=== PATIENT | female | born 1960 | race Caucasian/White ===

== ENCOUNTER 2016-08-18 18:55 | Emergency (ER) | payer BC ==
--- NOTE | 2016-08-29 07:12 | ER ---
ADMIT: 08/18/2016 RM/LOC: ER [facility] MR#: [id number] [address] [id number] LUCI DUNCAN [address] [place] [id number] Emergency Room Report SEX: F AGE: 56 : 1960 DATE: 08/18/2016 ADDENDUM: CHIEF COMPLAINT: Right flank pain. HISTORY OF PRESENT ILLNESS: This is a 56-year-old female who had right flank pain that started about an hour ago. She said it was sudden onset. It feels worse than labor cramps. CT was done. At this time, there is no stone visualized, but her pain is improved. I told her she could have passed a stone. Does seem to appear that she has a minor urinary tract infection. Her urine showed 2+ leukocytes, 17 white blood cells, 8 red blood cells. BMP is normal except for potassium at 3.5. Her creatinine is 1.3. Her GFR is 46. CBC is normal. CLINICAL IMPRESSION: Urinary tract infection. CHINTAN Anne / Cruz Lord MD / brooke JOB #: [id number] CC: Cruz Lord MD, Attending Physician Yifan Ellis MD, Family Physician
== END 2016-08-18 21:25 | disposition home or self-care (01) ==
LOC: ER 18:55
DX: N39.0 Urinary tract infection, site not specified (principal); Z79.899 Other long term (current) drug therapy

== ENCOUNTER → 2016-11-03 | Outpatient (CLI) | payer BC | END | disposition home or self-care (01) | LOC: RAD.S 07:58 | DX: Z12.31 Encounter for screening mammogram for malignant neoplasm of breast (principal); R92.1 Mammographic calcification found on diagnostic imaging of breast; Z80.3 Family history of malignant neoplasm of breast ==